=== PATIENT | female | born 1950 ===

== ENCOUNTER 2018-09-15 07:14 | Outpatient (CLI) | payer OTHER, SELFPAY ==
--- NOTE | 2018-09-15 10:42 | DI.MAMMO_ITS ---
SYMPTOM/DIAGNOSIS: SCREENING FOR BREAST CANCER Z12.39 MAMMOGRAM: 09/15 Mammograms were interpreted according to the usual protocol including computer analysis with CAD system, tomosynthesis and C view imaging. The breasts are heterogeneously dense. No dominant mass or clumped microcalcifications identified in either breast. No prior examinations available for comparison. CONCLUSION: No specific evidence of malignancy at this time. Routine screening examinations are suggested at yearly intervals in this age group according to the ACS/ACR guidelines. Category 1, breast density category C. MQSA ASSESSMENT OF FINDINGS: Negative. Category 1. Patient will receive a letter notifying them of these results. Bi-RADS category C. The breasts are heterogeneously dense, which may obscure small masses.
== END 2018-09-15 07:34 ==
PROVIDERS: Visit Provider Nurse Practitioner Family
DX: Z12.31 Encounter for screening mammogram for malignant neoplasm of breast (principal)
CPT/HCPCS: 77063; 77067

== ENCOUNTER 2018-10-31 13:28 | Outpatient (REF) | payer OTHER, MEDICAID, SELFPAY ==
--- NOTE | 2018-10-31 11:55 | PAPFT_PTH ---
PATIENT: HEMANTH DUVALL LOC: [facility] U#:[id number] AGE/SX: 68/F ROOM: RE10/31/[address]: Lennie Rivas MD : [id number] BED: DIS: 10/31/2018 SPEC #: [id number] RECD: 10/31/18 17:35 STATUS: FLIPNora REQ #: [id number] ARUN: 10/31/18 11:[address]: Lennie Rivas DEPT: [facility] Cytology RECD BY: Nilsa London ENTERED: 10/31/18 17:36 SP TYPE: PAPFT CHRISTOPHER DR: Unknown,Unknown Tissues: 1 - CX/ENDOCX FOR PAP SMEARS Procedures: PAP THIN PREP/[facility] Screening Comments: [id number] (NO HPV ORDERED PER SINGH NELSON @ [facility])
== END 2018-10-31 13:48 ==
LOC: LBN 13:28
PROVIDERS: Visit Provider Obstetrics & Gynecology
DX: Z12.4 Encounter for screening for malignant neoplasm of cervix (principal)
CPT/HCPCS: 87624; 88142